=== PATIENT | male | born 1950 | race Caucasian/White ===

== ENCOUNTER 2017-03-08 16:15 | Emergency (ER) | payer OTHER ==
[~2017-03-08] VITALS: Ht 182.9 cm; Wt 85.0 kg
[2017-03-08 20:46] VITALS: BP 145/78
== END 2017-03-08 20:48 | disposition home or self-care (01) ==
LOC: ED 18:45
DX: F10.120 Alcohol abuse with intoxication, uncomplicated (principal); I10 Essential (primary) hypertension; J44.9 Chronic obstructive pulmonary disease, unspecified
CPT/HCPCS: 99283